=== PATIENT | male | born 1950 | race Caucasian/White ===

== ENCOUNTER → 2018-12-29 10:15 | Outpatient (CLI) | payer MEDICARE, BC, SELFPAY ==
[2018-12-29 13:10] LABS: Adenovirus F 40/41 Not Detected (Not Detect); Astrovirus Not Detected (Not Detect); Campylobacter Not Detected (Not Detect); Clostridium difficile toxin AB Not Detected (Not Detect); Cryptosporidium Not Detected (Not Detect); Cyclospora cayetanensis Not Detected (Not Detect); Entamoeba histolytica Not Detected (Not Detect); Enteroaggregative E.coli Not Detected (Not Detect); Enteropathogenic E.coli Not Detected (Not Detect); Enterotoxigenic E.coli It/st Not Detected (Not Detect); Giardia lamblia Not Detected (Not Detect); Norovirus GI/GII Not Detected (Not Detect); Plesiomonsa shigelloides Not Detected (Not Detect); Rotavirus A Not Detected (Not Detect); Salmonella Not Detected (Not Detect); Shiga-like toxin-prod E.coli Not Detected (Not Detect); Shigella/Enteroinvasive E.coli Not Detected (Not Detect); Vibrio Not Detected (Not Detect); Vibrio cholerae Not Detected (Not Detect); Yersinia enterocolitica Not Detected (Not Detect)
== END ==
PROVIDERS: PCP Family Medicine; Visit Provider Physician Assistant
DX: R19.7 Diarrhea, unspecified (principal)
CPT/HCPCS: 87507

== ENCOUNTER 2020-04-10 08:38 | Inpatient (IN) | payer MEDICARE, BC, SELFPAY ==
[2020-04-10] VITALS (13 sets, daily range): BP systolic 131–172; BP diastolic 68–106; PULSE 67–94; RESP 14–37; TEMP 36.6–37.1; O2SAT 96–99; BMI 25.5
--- NOTE | 2020-04-10 08:55 | ED_ITS ---
HPI - Abdominal Pain General Chief Complaint: Abdominal Pain Stated Complaint: left side abdominal pain Time Seen by Provider: 04/10/20 08:53 Source: patient Mode of arrival: Ambulatory Limitations: no limitations History of Present Illness HPI narrative: This is a 69-year-old male who comes with complaint of left-sided abdominal pain that began about 730 last night. Patient states that pain sort of radiates to his lower chest on the left. As well as down on the lower left abdomen. Patient states it does not radiate to his back he denies any flank pain. Patient denies any testicular pain. He states pain started gradually and has increased intensity, has been constant without any exacerbating or alleviat ing factors. He started feeling nauseated at about noon yesterday and continues to feel so. He has not had any emesis. He has felt warm but has not had any documented fevers. He denies chills. He had a normal bowel movement today but has a sensation that he is about to have diarrhea. Patient denies any melena or bright red blood. He did take some Pepto yesterday. He denies any syncope but has felt lightheaded. No shortness of breath but does have increased pain in his abdomen when he takes a deep breath. He denies any swelling in his extremities. Patient does state he has had some issues with chronic diarrhea the past. He did have a colonoscopy 3 years ago which he states was negative and he was told to return in 10 years. Denies any medical issues otherwise, he does not take any medications regularly. He denies any prior surgeries. No allergies to medications. Quit smoking tobacco 25 years ago, quit drinking alcohol in February 2019, no recreational drugs. He does not currently have a primary care physician. Related Data Allergies Allergy/AdvReac Type Severity Reaction Status Date / Time No Known Allergies Allergy Uncoded 04/10/20 08:49 Review of Systems Review of Systems ROS Unobtainable: All systems reviewed & are unremarkable except as noted in HPI and below Patient History Medical History (Updated 04/10/20 @ 10:54 by Padma Saleh DO) Normal colonoscopy Social History Smoking Status: Former smoker Smoking Status: Former smoker alcohol intake frequency: 0-2 drinks per day Substance Use Type: does not use Exam Narrative Exam Narrative: GENERAL: Alert and oriented x three, well-nourished, well- appearing male in mild distress. HEENT: Head normocephalic, atraumatic, EOMI, pupils reactive, face symmetric, moist mucous membranes NECK: Supple, full range of motion CARDIOVASCULAR: Regular rate and rhythm without murmurs, rubs or gallops. RESPIRATORY: Breath sounds equal bilaterally, no wheezes rales or rhonchi. ABDOMEN: Soft, patient has mild left lower quadrant tenderness and moderate left upper quadrant tenderness. Normoactive bowel sounds all 4 quadrants. No guarding or rebound, rigidity, no mass, no bruit or pulsatile mass. : No CVA tenderness EXTREMITIES: Normal range of motion, no clubbing or edema. Neurovascularly intact NEUROLOGICAL: Cranial nerves II through XII grossly intact. Moving all extremities SKIN: Warm, dry, no petechiae, no rashes or lesions, no vesicles or other skin changes. Initial Vital Signs Initial Vital Signs: Vital Signs Temperature 98.8 F 04/10/20 08:45 Pulse Rate 94 H 04/10/20 08:45 Respiratory Rate 18 04/10/20 08:45 Blood Pressure 172/106 H 04/10/20 08:45 Pulse Oximetry 98 04/10/20 08:45 Course Orders Ordered: ED Orders 04/10/20 09:00 Complete Blood Count AUTO DIFF Stat Comprehensive Metabolic Panel Stat Lipase Stat Partial Thromboplastin Time Stat Procalcitonin Stat Prothrombin Time INR Stat Troponin & CK Cardiac Panel Stat 04/10/20 09:04 EKG-12 Lead Stat 04/10/20 09:15 COVID19 Stat 04/10/20 10:21 CT abdomen pelvis w con Stat 04/10/20 10:56 US abdomen complete Stat Discontinued Medications Sodium Chloride (Normal Saline 0.9%) 1,000 mls @ 1,000 mls/hr IV BOLUS ONE Stop: 04/10/20 10:05 Last Infusion: 04/10/20 11:21 Dose: 0 mls/hr Documented by: Admin: 04/10/20 09:40 Dose: 1,000 mls/hr Documented by: RADHA Ketorolac Tromethamine (Ketorolac 60 Mg/2 Ml Vial) 15 mg IV NOW ONE Stop: 04/10/20 09:07 Last Admin: 04/10/20 09:39 Dose: 15 mg Documented by: SMICHEAU Ondansetron HCl (Ondansetron 4 Mg/2 Ml Inj) 4 mg IV NOW ONE Stop: 04/10/20 09:07 Last Admin: 04/10/20 09:40 Dose: 4 mg Documented by: RADHA Reevaluation(s) Reevaluation #1: Patient updated on findings. He had improvement with Toradol he defers any additional pain medications. Time: 10:36 Consultations Consultation #1: Dr. Fuentes accepts for admission. He does request an abdominal US but patient can go to floor prior to results/obtained. Time: 10:57 Vital Signs Vital signs: Vital Signs - 8 hr 04/10/20 08:45 04/10/20 08:46 04/10/20 09:00 Temperature 98.8 F Pulse Rate 94 H 86 81 Respiratory Rate 18 21 36 H Blood Pressure 172/106 H 172/106 H Pulse Oximetry 98 99 98 04/10/20 09:30 04/10/20 09:48 04/10/20 10:00 Temperature Pulse Rate 69 70 67 Respiratory Rate 18 37 H 18 Blood Pressure 158/98 H 163/81 H Pulse Oximetry 97 97 97 04/10/20 10:20 04/10/20 10:30 04/10/20 11:00 Temperature Pulse Rate 78 73 73 Respiratory Rate 14 19 22 Blood Pressure 161/84 H 155/87 H 152/86 H Pulse Oximetry 99 98 98 MDM - Abdominal Pain Lab Data Attestation: I reviewed the patient's lab results. Result diagrams: 04/10/20 09:00 04/10/20 09:00 Labs: Lab Results 04/10/20 04/10/20 04/10/20 Range/Units 09:00 09:00 09:00 WBC 14.1 H (4.5-11.0) X10^3/uL RBC 5.25 (4.5-5.9) X10^6/uL Hgb 16.1 (13.5-17.5) g/dL Hct 46.6 (41-53) % MCV 88.7 (80-100) fL MCH 30.7 (26-34) PG MCHC 34.7 (30-36) % RDW 13.4 (11.6-14.8) % Plt Count 268 (150-400) X10^3/uL Neut % (Auto) 89.7 H (50-75) % Lymph % (Auto) 6.5 L (25-40) % [place] % (Auto) 3.6 (3-14) % Eos % (Auto) 0.0 L (2-4) % Baso % (Auto) 0.2 (0-2) % Neut # (Auto) 63267 H (7824-2635) /uL Lymph # (Auto) 900 L (6563-5492) /uL [place] # (Auto) 500 (0-900) /uL Eos # (Auto) 0 (0-450) /uL Baso # (Auto) 0 (0-100) /uL PT 11.9 (10.1-12.7) SECONDS INR 1.0 (0.9-1.3) APTT 28 (26.4-36.2) SECONDS Sodium 138 (137-145) mmol/L Potassium 3.6 (3.4-5.1) mmol/L Chloride 104 (98-107) mmol/L Carbon Dioxide 30 (22-32) mmol/L BUN 11 (9-20) mg/dL Creatinine 0.62 L (0.66-1.25) mg/dL Estimated GFR > 60.0 (>60) mL/min BUN/Creatinine Ratio 17.7 (6-22) Glucose 144 H (80-110) mg/dL Calcium 9.9 (8.4-10.2) mg/dL Total Bilirubin 1.0 (0.2-1.3) mg/dL AST 29 (17-59) IU/L ALT 27 (<50) IU/L Alkaline Phosphatase 80 (38-126) U/L Total Creatine Kinase (55-170) U/L CK-MB (CK-2) CK-MB (CK-2) Rel Index Troponin I (0.01-0.034) ng/mL Total Protein 7.5 (6.3-8.2) g/dL Albumin 4.5 (3.5-5.0) g/dL Globulin 3.0 (1.7-4.1) g/dL Albumin/Globulin Ratio 1.5 (1.0-2.8) Lipase 9560 H (23-300) U/L Procalcitonin (<0.5) ng/mL SARS-CoV-2 (PCR) (Negative) 04/10/20 04/10/20 04/10/20 Range/Units 09:00 09:00 09:15 WBC (4.5-11.0) X10^3/uL RBC (4.5-5.9) X10^6/uL Hgb (13.5-17.5) g/dL Hct (41-53) % MCV (80-100) fL MCH (26-34) PG MCHC (30-36) % RDW (11.6-14.8) % Plt Count (150-400) X10^3/uL Neut % (Auto) (50-75) % Lymph % (Auto) (25-40) % [place] % (Auto) (3-14) % Eos % (Auto) (2-4) % Baso % (Auto) (0-2) % Neut # (Auto) (8250-0590) /uL Lymph # (Auto) (0178-9987) /uL [place] # (Auto) (0-900) /uL Eos # (Auto) (0-450) /uL Baso # (Auto) (0-100) /uL PT (10.1-12.7) SECONDS INR (0.9-1.3) APTT (26.4-36.2) SECONDS Sodium (137-145) mmol/L Potassium (3.4-5.1) mmol/L Chloride (98-107) mmol/L Carbon Dioxide (22-32) mmol/L BUN (9-20) mg/dL Creatinine (0.66-1.25) mg/dL Estimated GFR (>60) mL/min BUN/Creatinine Ratio (6-22) Glucose (80-110) mg/dL Calcium (8.4-10.2) mg/dL Total Bilirubin (0.2-1.3) mg/dL AST (17-59) IU/L ALT (<50) IU/L Alkaline Phosphatase (38-126) U/L Total Creatine Kinase 55 (55-170) U/L CK-MB (CK-2) TNP CK-MB (CK-2) Rel Index TNP Troponin I < 0.012 (0.01-0.034) ng/mL Total Protein (6.3-8.2) g/dL Albumin (3.5-5.0) g/dL Globulin (1.7-4.1) g/dL Albumin/Globulin Ratio (1.0-2.8) Lipase (23-300) U/L Procalcitonin < 0.05 (<0.5) ng/mL SARS-CoV-2 (PCR) Negative (Negative) Imaging Data CT scan - abdomen/pelvis: Radiologist's Impression: [address] [id number] Scan ReportSigned Patient: Giovanni Roche EMR#: [id number]: 1Acct:[id number]/Sex: 69 / MDate of Service: 04/10/20Loc: EDAccession Number: [id number] Procedure: CT abdomen pelvis w con Ordering Provider: Padma Saleh D.O. PROCEDURE: CT ABDOMEN PELVIS W CON INDICATIONS: Left sided abdominal pain TECHNIQUE: After the administration of intravenous contrast, 5 mm thick sections acquired from the diaphragm to the symphysis. 5 mm coronal and sagittal reformats were acquired. For radiation dose reduction, the following was used: automated exposure control, adjustment of mA and/or kV according to patient size. COMPARISON: None. FINDINGS: Image quality: Excellent. ABDOMEN: Lung bases: Lung bases are clear. Heart size is normal. Solid organs: Liver is normal in size and enhancement. Gallbladder wall is not thickened. Biliary system is non dilated. Moderate inflammatory changes are seen surrounding the pancreas. No loculated fluid collections are seen to suggest pseudocyst. The pancreas itself enhances normally, without necrotic regions. No lester pancreatic masses can be seen. However, there is a 1.4 cm apparent cyst involving the inferior body of the pancreas, as on series 4, image 19. No dilatation of the pancreatic duct is seen. Spleen is normal in size and enhancement. Incidental note is made of an accessory splenule along the hilum of the primary spleen. No adrenal nodules. Kidneys demonstrate normal size and enhancement, without hydronephrosis. Peritoneum and bowel: Bowel loops demonstrate normal wall thickness and caliber. No free fluid or air. Hyperdense material can be seen within the stomach and within the bowel. Please correlate with ingestions, such as Pepto-Bismol. Nodes and vessels: No retroperitoneal or mesenteric adenopathy by size criteria . Aorta and inferior vena cava are normal in size. Atherosclerotic calcification is noted. Miscellaneous: No ventral hernias. PELVIS: Genitourinary: Bladder wall thickness is normal. Miscellaneous: No inguinal hernias or adenopathy. The prostate is prominent, measuring 5.2 cm transversely. Bones: No suspicious bony lesions. No vertebral body compression fractures. Degenerative changes are seen, which are most prominent involving the L4-L5 level. Milder degenerative changes are seen elsewhere. IMPRESSION: Suspicion for pancreatitis, with moderate surrounding change seen surrounding the pancreas. Please correlate with patient presentation, physical examination findings, and laboratory values. An apparent 1.4 cm pancreatic cyst can be seen. Following the patient's current clinical episode, please consider a dedicated pancreas protocol MRI (without and with contrast) for further evaluation (assuming that there is no contraindication). Incidental note is made of: Prominent prostate Focal L4-L5 degenerative change Dictated by: Ritesh Pacheco M.D. on 04/10/2020 at 9:33 Approved by: Ritesh Pacheco M.D. on 04/10/2020 at 9:37 ECG Data Attestation: I personally reviewed and interpreted this ECG as follows: Prior ECG tracings: not available for review Interpretation: Normal sinus rhythm, rate of 76, MT 178, QRS of 98 QTC of 438. No ST elevation appreciated. Nonspecific change. No priors available. Discharge Plan Departure Patient Disposition: Admitted as Observation Clinical Impression: Pancreatitis, Cyst of pancreas Admit Date/Time: 04/10/20 11:10 Admit Provider: Lloyd Fuentes
[2020-04-10 09:20] LABS: Add Manual Diff / Slide Review NO; Basophils Absolute Auto 0 /uL (0-100); Basophils Percent Auto 0.2 % (0-2); Eosinophils Absolute Auto 0 /uL (0-450); Hematocrit 46.6 % (41-53); Hemoglobin 16.1 g/dL (13.5-17.5); Lymphocytes Absolute Auto 900 /uL (1100-4500); Lymphocytes Percent Auto 6.5 % (25-40); Mean Corpuscular HGB Conc 34.7 % (30-36); Mean Corpuscular Hemoglobin 30.7 PG (26-34); Mean Corpuscular Volume 88.7 fL (80-100); Monocytes Absolute Auto 500 /uL (0-900); Monocytes Percent Auto 3.6 % (3-14); Neutrophils Absolute Auto 12600 /uL (1500-7000); Neutrophils Percent Auto 89.7 % (50-75); Platelet Count 268 X10^3/uL (150-400); Red Blood Cell Count 5.25 X10^6/uL (4.5-5.9); Red Cell Distribution Width 13.4 % (11.6-14.8); White Blood Cell Count 14.1 X10^3/uL (4.5-11.0)
[2020-04-10 09:21] LABS: Prothrombin Time 11.9 SECONDS (10.1-12.7)
[2020-04-10 09:24] LABS: PTT Partial Thromboplastin Tim 28 SECONDS (26.4-36.2)
[2020-04-10 09:29] LABS: Alanine Aminotransferase 27 IU/L (<50); Albumin 4.5 g/dL (3.5-5.0); Albumin Globulin Ratio 1.5 (1.0-2.8); Alkaline Phosphatase 80 U/L (38-126); Aspartate Aminotransferase 29 IU/L (17-59); BUN Creatinine Ratio 17.7 (6-22); Blood Urea Nitrogen 11 mg/dL (9-20); Calcium 9.9 mg/dL (8.4-10.2); Carbon Dioxide 30 mmol/L (22-32); Chloride 104 mmol/L (98-107); Creatine Kinase 55 U/L (55-170); Estimated Glomerular Filt Rate > 60.0 mL/min (>60); Glucose 144 mg/dL (80-110); Potassium 3.6 mmol/L (3.4-5.1); Sodium 138 mmol/L (137-145); Total Protein 7.5 g/dL (6.3-8.2)
[2020-04-10] MEDS: KETOROLAC 60 MG/2 ML VIAL 15 MG IV (09:39)
[2020-04-10 09:40] LABS: Troponin I < 0.012 ng/mL (0.01-0.034)
[2020-04-10] MEDS: SODIUM CHLORIDE 0.9% 1,000 ML 1000 ML IV (09:40)
[2020-04-10] MEDS: ONDANSETRON 4 MG/2 ML INJ IV ×2 (09:40→13:10)
[2020-04-10 09:44] LABS: Procalcitonin < 0.05 ng/mL (<0.5)
[2020-04-10 09:54] LABS: COVID19 -Nasal RAPID Negative (Negative)
[2020-04-10 10:06] LABS: HEMOLYSIS 28 (0-50)
[2020-04-10 10:07] LABS: Lipase 9560 U/L (23-300)
--- NOTE | 2020-04-10 10:21 | DI.CT.S_ITS ---
PROCEDURE: CT ABDOMEN PELVIS W CON INDICATIONS: Left sided abdominal pain TECHNIQUE: After the administration of intravenous contrast, 5 mm thick sections acquired from the diaphragm to the symphysis. 5 mm coronal and sagittal reformats were acquired. For radiation dose reduction, the following was used: automated exposure control, adjustment of mA and/or kV according to patient size. COMPARISON: None. FINDINGS: Image quality: Excellent. ABDOMEN: Lung bases: Lung bases are clear. Heart size is normal. Solid organs: Liver is normal in size and enhancement. Gallbladder wall is not thickened. Biliary system is non dilated. Moderate inflammatory changes are seen surrounding the pancreas. No loculated fluid collections are seen to suggest pseudocyst. The pancreas itself enhances normally, without necrotic regions. No lester pancreatic masses can be seen. However, there is a 1.4 cm apparent cyst involving the inferior body of the pancreas, as on series 4, image 19. No dilatation of the pancreatic duct is seen. Spleen is normal in size and enhancement. Incidental note is made of an accessory splenule along the hilum of the primary spleen. No adrenal nodules. Kidneys demonstrate normal size and enhancement, without hydronephrosis. Peritoneum and bowel: Bowel loops demonstrate normal wall thickness and caliber. No free fluid or air. Hyperdense material can be seen within the stomach and within the bowel. Please correlate with ingestions, such as Pepto-Bismol. Nodes and vessels: No retroperitoneal or mesenteric adenopathy by size criteria. Aorta and inferior vena cava are normal in size. Atherosclerotic calcification is noted. Miscellaneous: No ventral hernias. PELVIS: Genitourinary: Bladder wall thickness is normal. Miscellaneous: No inguinal hernias or adenopathy. The prostate is prominent, measuring 5.2 cm transversely. Bones: No suspicious bony lesions. No vertebral body compression fractures. Degenerative changes are seen, which are most prominent involving the L4-L5 level. Milder degenerative changes are seen elsewhere. IMPRESSION: Suspicion for pancreatitis, with moderate surrounding change seen surrounding the pancreas. Please correlate with patient presentation, physical examination findings, and laboratory values. An apparent 1.4 cm pancreatic cyst can be seen. Following the patient's current clinical episode, please consider a dedicated pancreas protocol MRI (without and with contrast) for further evaluation (assuming that there is no contraindication). Incidental note is made of: Prominent prostate Focal L4-L5 degenerative change Dictated by: Ritesh Pacheco M.D. on 04/10/2020 at 9:33 Approved by: Ritesh Pacheco M.D. on 04/10/2020 at 9:37
--- NOTE | 2020-04-10 10:56 | DI.US.S_ITS ---
PROCEDURE: US ABDOMEN COMPLETE INDICATIONS: PANCREATITIS AND PANCREATIC CYST - ROOM 219 TECHNIQUE: Real-time scanning was performed of the abdominal and retroperitoneal organs, with image documentation. COMPARISON: [facility], CT, CT ABDOMEN PELVIS W CON, 04/10/2020, 10:12. FINDINGS: Liver: Liver is normal in size and homogeneous in echotexture. Gallbladder: Nondilated. No stones or sludge. Normal gallbladder wall thickness. No pericholecystic fluid. Negative sonographic Arzola's sign. Biliary ducts: Intrahepatic bile ducts are non-dilated. Extrahepatic bile duct caliber measures 3 mm. Normal is 6-7 mm or less in diameter, or 10 mm or less post-cholecystectomy. Pancreas: Not well seen. Spleen: Spleen is normal in size and homogeneous in echotexture. Small splenule noted. Kidneys: Kidneys are normal in size and echotexture. Right kidney measures 9.8 cm long; left kidney measures 10.2 cm long. No hydronephrosis or nephrolithiasis. No solid masses. Aorta: Visualized aorta is normal in caliber at less than 3 cm. Iliacs: Proximal common iliac arteries are normal in caliber at less than 2.5 cm. IVC: Intrahepatic inferior vena cava is patent. Miscellaneous: No free abdominal fluid. IMPRESSION: 1. Pancreas is not well seen due to overlying bowel gas. -Consider further evaluation with CT pancreas or MRI pancreas with IV contrast in this patient with suspected pancreatitis. -Evaluation of the small suspected cyst in the pancreas would be more optimally performed in a few weeks. 2. No acute cholecystitis. No gallstones. 3. No biliary ductal dilatation seen. Dictated by: Efren Purcell M.D. on 04/10/2020 at 12:31 Approved by: Efren Purcell M.D. on 04/10/2020 at 12:37
--- NOTE | 2020-04-10 14:06 | P.HP_ITS ---
History of Present Illness History of Present Illness Date Patient Seen: 04/10/20 Time Patient Seen: 13:45 Date of Onset of Symptoms: 04/09/20 Chief complaint: left side abdominal pain Narrative: Patient is a 69-year-old generally healthy male presented to the emergency department due to acute abdominal pain since last night. Around 7:30 p.m. he developed nausea, dry heaves and left upper abdominal pain. He states the pain radiated up into his chest and also further down his abdomen. He had dry heaves but did not throw up. He denies fevers or chills. He quit drinking a year ago but previously alcohol consumption consisted of 1 beer a day. He is not a smoker. He is not on any medications. On ER evaluation, he was hypertensive with BP 172/106 which is trending down. Other vitals were normal. His WBC was 14.1 with left shift. His chemistries were normal including LFTs except for glucose 144. His lipase was elevated at 9 560. COVID test is negative. A CT scan showed moderate inflammatory changes surrounding the pancreas and a 1.4 cm pancreatic cyst. Ultrasound showed no gallstones or bile duct dilatation. Patient History Medical History (Updated 04/10/20 @ 10:54 by Padma Saleh DO) Normal colonoscopy Family & Social History Social History: household members none Prior Living Arrangements House Safety & Behavioral: Feels Safe in Current Yes Environment Been Physically Hurt or No Threatened By a Person Suicidal Ideation Description None Suicide Plan Description No Plan Tobacco & Substance use: Smoking Status Former smoker alcohol intake frequency 0-2 drinks per day Substance Use Type does not use Meds Home Medications and Allergies Allergies Allergy/AdvReac Type Severity Reaction Status Date / Time No Known Drug Allergies Allergy Verified 04/10/20 12:08 Review of Systems Review of Systems ROS: Yes All systems reviewed with the patient and are negative except as otherwise documented Exam Vital Signs (past 8 hours): - 04/10/20 08:45 04/10/20 08:46 04/10/20 09:00 Temperature 98.8 F Pulse Rate 94 H 86 81 Respiratory Rate 18 21 36 H Blood Pressure 172/106 H 172/106 H Pulse Oximetry 98 99 98 04/10/20 09:30 04/10/20 09:48 04/10/20 10:00 Temperature Pulse Rate 69 70 67 Respiratory Rate 18 37 H 18 Blood Pressure 158/98 H 163/81 H Pulse Oximetry 97 97 97 04/10/20 10:20 04/10/20 10:30 04/10/20 11:00 Temperature Pulse Rate 78 73 73 Respiratory Rate 14 19 22 Blood Pressure 161/84 H 155/87 H 152/86 H Pulse Oximetry 99 98 98 Oxygen Delivery Method Room Air Narrative Exam Narrative: General: Alert very pleasant well-developed well-nourished male in no acute distress HEENT: Anicteric pupils equal oropharynx unremarkable Neck: Supple without lymphadenopathy Lungs: Clear to auscultation Heart: Regular rhythm without murmur Abdomen: Nondistended, soft, tender in epigastric and left upper quadrant, no HSM Extremities: Warm, dry without edema Neurological: Oriented x3, affect normal, speech normal, nonfocal Objective Labs Result Diagrams: 04/10/20 09:00 04/10/20 09:00 Labs: Laboratory Results - last 24 hr 04/10/20 04/10/20 04/10/20 09:00 09:00 09:00 WBC 14.1 H RBC 5.25 Hgb 16.1 Hct 46.6 MCV 88.7 MCH 30.7 MCHC 34.7 RDW 13.4 Plt Count 268 Neut % (Auto) 89.7 H Lymph % (Auto) 6.5 L [place] % (Auto) 3.6 Eos % (Auto) 0.0 L Baso % (Auto) 0.2 Neut # (Auto) 29801 H Lymph # (Auto) 900 L [place] # (Auto) 500 Eos # (Auto) 0 Baso # (Auto) 0 PT 11.9 INR 1.0 APTT 28 Sodium 138 Potassium 3.6 Chloride 104 Carbon Dioxide 30 BUN 11 Creatinine 0.62 L Estimated GFR > 60.0 BUN/Creatinine Ratio 17.7 Glucose 144 H Calcium 9.9 Total Bilirubin 1.0 AST 29 ALT 27 Alkaline Phosphatase 80 Total Creatine Kinase CK-MB (CK-2) CK-MB (CK-2) Rel Index Troponin I Total Protein 7.5 Albumin 4.5 Globulin 3.0 Albumin/Globulin Ratio 1.5 Lipase 9560 H Procalcitonin SARS-CoV-2 (PCR) 04/10/20 04/10/20 04/10/20 09:00 09:00 09:15 WBC RBC Hgb Hct MCV MCH MCHC RDW Plt Count Neut % (Auto) Lymph % (Auto) [place] % (Auto) Eos % (Auto) Baso % (Auto) Neut # (Auto) Lymph # (Auto) [place] # (Auto) Eos # (Auto) Baso # (Auto) PT INR APTT Sodium Potassium Chloride Carbon Dioxide BUN Creatinine Estimated GFR BUN/Creatinine Ratio Glucose Calcium Total Bilirubin AST ALT Alkaline Phosphatase Total Creatine Kinase 55 CK-MB (CK-2) TNP CK-MB (CK-2) Rel Index TNP Troponin I < 0.012 Total Protein Albumin Globulin Albumin/Globulin Ratio Lipase Procalcitonin < 0.05 SARS-CoV-2 (PCR) Negative Assessment & Plan Assessment & Plan narrative: This is a 69-year-old male admitted with abdominal pain x1 day. 1. Acute pancreatitis -etiology undetermined as patient is not a drinker and has no gallstones or CBD dilatation on imaging, it is possible he passed a small stone, he is not on any meds -IV hydration, Zofran/Reglan as needed, morphine/oxycodone as needed -clear liquid diet -CBC, BMP in a.m. 2. Pancreatic cyst -he has a small pancreatic cyst on CT -per Radiology, recommend repeat imaging as outpatient with dedicated abdominal MRI DVT prophylaxis: Enoxaparin Quality VTE Deep Vein Thrombosis/Pulmonary Embolism Present on Admission: No
[2020-04-10] MEDS: SODIUM CHLORIDE 0.9% 1,000 ML 150 ML IV ×2 (14:24→21:45)
[2020-04-10] MEDS: METOCLOPRAMIDE 10 MG/2 ML INJ IV (14:36)
--- NOTE | 2020-04-10 14:57 | PC.ADMIT ---
[id number] Admission Note: Safe hand off from Jeffrey DUMONT, ED. Patient was brought to the floor via wheelchair. Patients was able to transfer to bed w/ no assistance. Lung sounds are clear, patient is hypertensive 154/87. Patient has some complaints of nausea and Left Lower Quadrant pain 4/10. Patient was given IV zofran, which did not help his nausea. Patient started on fluids NS@150ml/hr. Dr. Fuentes ordered Reglan for patient which was given at 1440. Patient is now on clear liquid diet instead of NPO. Ice water and jello given. Will see if patient tolerates PO intake. Patient states that he orders all of his food on [employer] and does not buy any fresh food from the store because of Covid. Patient educated about the use of store crop picker ordering online and [employer] food delivery services. Patient educated about the use of call light, it is within reach, and bed is low and locked. The patient,Giovanni Roche,69 y/o, was given written information regarding hospital policies, unit procedures and contact persons. Patient's smoking status: Former smoker. Vital Signs - 8 hr 04/10/20 08:45 04/10/20 08:46 04/10/20 09:00 Temperature 98.8 F Pulse Rate 94 H 86 81 Respiratory Rate 18 21 36 H Blood Pressure 172/106 H 172/106 H Pulse Oximetry 98 99 98 04/10/20 09:30 04/10/20 09:48 04/10/20 10:00 Temperature Pulse Rate 69 70 67 Respiratory Rate 18 37 H 18 Blood Pressure 158/98 H 163/81 H Pulse Oximetry 97 97 97 04/10/20 10:20 04/10/20 10:30 04/10/20 11:00 Temperature Pulse Rate 78 73 73 Respiratory Rate 14 19 22 Blood Pressure 161/84 H 155/87 H 152/86 H Pulse Oximetry 99 98 98 04/10/20 14:03 Temperature 97.9 F Pulse Rate 72 Respiratory Rate 18 Blood Pressure 154/87 H Pulse Oximetry 96
[2020-04-10 17:29] LABS: Hemoglobin A1C% w Est Avg Glu 5.6 % (4.0-6.0)
[2020-04-10] MEDS: OXYCODONE IR 5 MG TABLET PO (21:45)
[2020-04-11] VITALS (10 sets, daily range): BP systolic 125–142; BP diastolic 75–84; PULSE 77–83; RESP 15–18; TEMP 36.8–37.5; O2SAT 94–98
[2020-04-11] MEDS: SODIUM CHLORIDE 0.9% 1,000 ML 150 ML IV ×3 (04:09→17:40)
[2020-04-11] MEDS: OXYCODONE IR 5 MG TABLET PO ×3 (04:13→20:16)
[2020-04-11 05:29] LABS: Add Manual Diff / Slide Review NO; Basophils Absolute Auto 0 /uL (0-100); Basophils Percent Auto 0.2 % (0-2); Eosinophils Absolute Auto 0 /uL (0-450); Eosinophils Percent Auto 0.1 % (2-4); Hematocrit 39.3 % (41-53); Hemoglobin 13.4 g/dL (13.5-17.5); Lymphocytes Absolute Auto 1100 /uL (1100-4500); Lymphocytes Percent Auto 7.3 % (25-40); Mean Corpuscular Hemoglobin 30.3 PG (26-34); Monocytes Absolute Auto 1100 /uL (0-900); Monocytes Percent Auto 6.9 % (3-14); Neutrophils Absolute Auto 13200 /uL (1500-7000); Neutrophils Percent Auto 85.5 % (50-75); Platelet Count 200 X10^3/uL (150-400); Red Blood Cell Count 4.42 X10^6/uL (4.5-5.9); Red Cell Distribution Width 13.6 % (11.6-14.8); White Blood Cell Count 15.4 X10^3/uL (4.5-11.0)
--- NOTE | 2020-04-11 05:30 | PC.NURSE ---
Pt stable through shift, no complaints of nausea. Pain controlled with current medication regime, pt able to sleep through majority of the night. VSS, in no cardiovascular or respiratory distress, AOx4. Pt adhering to clear liquids, oral intake decreased d/t sleeping.
[2020-04-11 05:41] LABS: BUN Creatinine Ratio 12.7 (6-22); Blood Urea Nitrogen 8 mg/dL (9-20); Calcium 8.4 mg/dL (8.4-10.2); Carbon Dioxide 29 mmol/L (22-32); Chloride 107 mmol/L (98-107); Estimated Glomerular Filt Rate > 60.0 mL/min (>60); Glucose 117 mg/dL (80-110); HEMOLYSIS < 15 (0-50); Sodium 135 mmol/L (137-145)
[2020-04-11] MEDS: INFLUENZA HD VACCINE 0.7 ML SYRINGE IM (09:04)
[2020-04-11] MEDS: ENOXAPARIN 40 MG/0.4 ML SYRINGE SUBCUT (09:05)
--- NOTE | 2020-04-11 11:29 | CM.DANOTE ---
Addendum entered by Simona Wong R.N. 04/11/20 13:10: Met with patient and gave him phone numbers for [facility]. Asked him about food delivery, since patient indicated, he has not left his house since last May, due to COVID concerns. He has been getting his groceries delivered by [employer]. Patient indicated that supplies are mostly canned items, and powered milk. Asked him if he had considered [employer]. or one of the other options that they can deliver with fresh produce. Stated, he was looking into [employer], and may consider having [employer] deliver, so he can get fresh produce. Original Note: DCP: Case received, EMR reviewed and met with patient. Introduces self and role. Was able to obtain information from patient regarding his baseline activity status prior to hospitalization. DCP assessment completed with information currently available. Patient is a 69 year old male who admitted yesterday morning to the care of the hospitalist team. PCP: None-Will provide provider resources. Payer: confirmed: Medicare/BCBS Out of [facility]. Patient came to the hospital via private vehicle secondary to having left sided abdominal pain. He had also been complaining of left sided chest discomfort as well. Patient was diagnosed with pancreatitis. Patient does have history of alcohol use, was indicated that he had stopped i 2018. Met with patient in his room. He was sitting up in bed, alert and oriented, pleasant. He is independent at baseline. He resides here in [place] alone. He has no immediate family in the area, but has a sister in [place]. He had not left his house in several months, due to concerns about the virus. His groceries are delivered through [employer]. Confirmed that he has no primary MD, and let him know that this case mgr can give number for providers at [facility]. P: DCP to continue to follow for needs. Patient should be able to go home when stable. He may be having an MRI today. Will provide with resources. Simona Wong RN/Director Of Recruiting
--- NOTE | 2020-04-11 13:14 | DI.RAD.S_ITS ---
PROCEDURE: XR ABDOMEN MIN 2V INDICATIONS: r/o ileus. TECHNIQUE: 2 views of the abdomen were acquired. COMPARISON: None. FINDINGS: Surgical changes and devices: None. Bowel: No pneumoperitoneum. The bowel gas pattern is normal. Soft tissues: No masses; visualized solid organ contours appear normal in size. No suspicious abdominal calcifications. Bones: No suspicious bony abnormalities. IMPRESSION: Nonspecific bowel gas pattern. The degree of small bowel prominence at the mid abdomen on the left has diminished. No free air seen. Dictated by: Arnulfo Scott M.D. on 04/11/2020 at 14:12 Approved by: Arnulfo Scott M.D. on 04/11/2020 at 14:12
[2020-04-11] MEDS: MAGNESIUM HYDROXIDE 30 ML UDC PO (15:52)
--- NOTE | 2020-04-11 16:24 | PM.PN.1 ---
Subjective Subjective Date Patient Seen: 04/11/20 Interval history: Patient is 69-year-old male admitted with acute abdominal pain due to pancreatitis. Patient reports some improvement in pain though still 4/10. He also feels his stomach is bloated and hard and he has not passed any gas. He is on clear liquid diet. Last bowel movement was about 24 hours ago. Exam Vital Signs (past 8 hours): - 04/11/20 10:00 04/11/20 12:00 04/11/20 14:00 Temperature 98.4 F Pulse Rate 80 Respiratory Rate 15 Blood Pressure 127/81 Pulse Oximetry 98 95 98 04/11/20 15:40 Temperature 99.5 F Pulse Rate 78 Respiratory Rate 18 Blood Pressure 142/80 H Pulse Oximetry 96 Oxygen Delivery Method Room Air Oxygen Flow Rate 0 Narrative Exam Narrative: General: Alert and cooperative Lungs: Clear to auscultation Heart: Regular rhythm Abdomen: Moderately distended, bowel sounds are present, tender and guarding in left upper quadrant and left mid abdomen Objective Labs Result Diagrams: 04/11/20 05:05 04/11/20 05:05 Labs: Laboratory Results - last 24 hr 04/10/20 04/11/20 04/11/20 17:00 05:05 05:05 WBC 15.4 H RBC 4.42 L Hgb 13.4 L Hct 39.3 L MCV 89.0 MCH 30.3 MCHC 34.0 RDW 13.6 Plt Count 200 Neut % (Auto) 85.5 H Lymph % (Auto) 7.3 L [place] % (Auto) 6.9 Eos % (Auto) 0.1 L Baso % (Auto) 0.2 Neut # (Auto) 81199 H Lymph # (Auto) 1100 [place] # (Auto) 1100 H Eos # (Auto) 0 Baso # (Auto) 0 Sodium 135 L Potassium 4.0 Chloride 107 Carbon Dioxide 29 BUN 8 L Creatinine 0.63 L Estimated GFR > 60.0 BUN/Creatinine Ratio 12.7 Glucose 117 H Hemoglobin A1c 5.6 Calcium 8.4 PFSH Medical History (Updated 04/10/20 @ 10:54 by Padma Saleh DO) Normal colonoscopy Social History household members: none Smoking Status: Former smoker Assessment & Plan Assessment & Plan narrative: 1. Acute pancreatitis -etiology undetermined as patient is not a drinker and has no gallstones or CBD dilatation on imaging, it is possible he passed a small stone, he is not on any home meds -abdomen more distended today, however x-rays did not show any ileus, he has mild leukocytosis -continue supportive therapy with IV hydration, Zofran/Reglan as needed, morphine/oxycodone as needed -clear liquid diet as tolerated only -CBC, BMP in a.m. 2. Pancreatic cyst -he has a small pancreatic cyst on CT -per Radiology, recommend repeat imaging as outpatient with dedicated abdominal MRI DVT prophylaxis: Enoxaparin Quality VTE Deep Vein Thrombosis/Pulmonary Embolism Present on Admission: No
--- NOTE | 2020-04-11 21:54 | PC.NURSE ---
Pt IV infiltrated and D/C at 1900. New IV started in L forearm by TIM Reese. Infusing NS @150 per orders. Pt had complaints of nausea and discomfort during shift, medicated per MAY and pain and nausea were relieved.
[2020-04-12] VITALS (8 sets, daily range): BP systolic 131–150; BP diastolic 74–87; PULSE 69–80; RESP 14–18; TEMP 36.7–37.3; O2SAT 93–98
--- NOTE | 2020-04-12 00:21 | PC.NURSE ---
2320 patient seen and assessed. Is alert and oriented. Breath sounds CTA with RA sat of 94%. HRR. BP 141/84 and has been running 120's-160's this hospitalization. HRR. Denies nausea. BT present but denies passing flatus in several days. Abdomen is slightly distended and firm. Complains of 4/10 dull achy pain in left quads of abdomen but states it is tolerable and declines pain medication. Denies dysuria, frequency or urgency with urination. Is able to turn self in bed. Is provided SBA when out of bed as safety precaution as fall risk score is moderate; bed alarm is activated.
[2020-04-12] MEDS: SODIUM CHLORIDE 0.9% 1,000 ML 150 ML IV ×3 (00:55→21:40)
[2020-04-12 05:53] LABS: Add Manual Diff / Slide Review NO; Basophils Absolute Auto 0 /uL (0-100); Basophils Percent Auto 0.2 % (0-2); Eosinophils Absolute Auto 100 /uL (0-450); Eosinophils Percent Auto 0.9 % (2-4); Hematocrit 38.7 % (41-53); Lymphocytes Absolute Auto 1200 /uL (1100-4500); Lymphocytes Percent Auto 8.6 % (25-40); Mean Corpuscular HGB Conc 33.7 % (30-36); Mean Corpuscular Volume 88.8 fL (80-100); Monocytes Absolute Auto 1100 /uL (0-900); Monocytes Percent Auto 7.6 % (3-14); Neutrophils Absolute Auto 11900 /uL (1500-7000); Neutrophils Percent Auto 82.7 % (50-75); Platelet Count 187 X10^3/uL (150-400); Red Blood Cell Count 4.35 X10^6/uL (4.5-5.9); Red Cell Distribution Width 13.4 % (11.6-14.8); White Blood Cell Count 14.3 X10^3/uL (4.5-11.0)
[2020-04-12 06:02] LABS: BUN Creatinine Ratio 9.4 (6-22); Blood Urea Nitrogen 6 mg/dL (9-20); Calcium 8.4 mg/dL (8.4-10.2); Carbon Dioxide 28 mmol/L (22-32); Chloride 106 mmol/L (98-107); Estimated Glomerular Filt Rate > 60.0 mL/min (>60); Glucose 93 mg/dL (80-110); HEMOLYSIS < 15 (0-50); Sodium 135 mmol/L (137-145)
[2020-04-12] MEDS: ENOXAPARIN 40 MG/0.4 ML SYRINGE SUBCUT (07:40)
[2020-04-12 09:21] LABS: Triglycerides 79 mg/dL (35-150)
--- NOTE | 2020-04-12 13:54 | PM.PN.1 ---
Subjective Subjective Date Patient Seen: 04/12/20 Interval history: Patient is 69-year-old male admitted with acute abdominal pain due to pancreatitis. Patient reports improvement in abdominal distension which he was having yesterday. He still has leukocytosis. He is tolerating clear liquid diet. Exam Vital Signs (past 8 hours): - 04/12/20 07:24 04/12/20 07:30 04/12/20 11:34 Temperature 98.2 F 98.0 F Pulse Rate 76 71 Respiratory Rate 16 14 Blood Pressure 131/77 139/85 Pulse Oximetry 94 98 97 Oxygen Delivery Method Room Air Oxygen Flow Rate 0 Narrative Exam Narrative: General: Alert, NAD Lungs: Clear to auscultation Heart: Regular rhythm Abdomen: Soft, not tender today, no guarding Extremities: No edema Neurological: Normal affect Objective Labs Result Diagrams: 04/12/20 05:15 04/12/20 05:15 Labs: Laboratory Results - last 24 hr 04/12/20 04/12/20 04/12/20 05:15 05:15 08:54 WBC 14.3 H RBC 4.35 L Hgb 13.0 L Hct 38.7 L MCV 88.8 MCH 30.0 MCHC 33.7 RDW 13.4 Plt Count 187 Neut % (Auto) 82.7 H Lymph % (Auto) 8.6 L [place] % (Auto) 7.6 Eos % (Auto) 0.9 L Baso % (Auto) 0.2 Neut # (Auto) 05111 H Lymph # (Auto) 1200 [place] # (Auto) 1100 H Eos # (Auto) 100 Baso # (Auto) 0 Sodium 135 L Potassium 4.0 Chloride 106 Carbon Dioxide 28 BUN 6 L Creatinine 0.64 L Estimated GFR > 60.0 BUN/Creatinine Ratio 9.4 Glucose 93 Calcium 8.4 Triglycerides 79 PFSH Medical History (Updated 04/10/20 @ 10:54 by Padma Saleh DO) Normal colonoscopy Social History household members: none Smoking Status: Former smoker Assessment & Plan Assessment & Plan narrative: 1. Acute pancreatitis -etiology undetermined as patient is not a drinker and has no gallstones or CBD dilatation on imaging, it is possible he passed a small stone, he is not on any home meds -triglyceride 97 -abdominal distension and pain is improving and tolerating clears -continue supportive therapy with IV hydration, Zofran/Reglan as needed, morphine/oxycodone as needed -clear liquid diet, consider advance diet on Thursday -CBC, BMP in a.m. 2. Pancreatic cyst -he has a small pancreatic cyst on CT -per Radiology, recommend repeat imaging as outpatient with dedicated abdominal MRI DVT prophylaxis: Enoxaparin Quality VTE Deep Vein Thrombosis/Pulmonary Embolism Present on Admission: No
--- NOTE | 2020-04-12 15:06 | PC.NURSE ---
GI: Had some sl nausea after clear liquids this am. He didn't want to take anything for it. Has active BT's and has been up in the room with out problems. At times feels hungry, then he isn't hungry. He is sl distended, minimal amts of flatus, no bm since he has been here. Cont w/poc.
--- NOTE | 2020-04-12 21:53 | PC.NURSE ---
Pt is alert and oriented. BP 142/84 but has been baseline for him this hospital stay. O2 95% RA. Has had no complaints of nausea or pain during this shift. Bowels active and states he is passing flatus. Pt uses call light appropriately and rests comfortably.
[2020-04-13] VITALS (10 sets, daily range): BP systolic 136–152; BP diastolic 74–90; PULSE 61–78; RESP 16–18; TEMP 36.5–37.7; O2SAT 95–99
[2020-04-13] MEDS: SODIUM CHLORIDE 0.9% 1,000 ML 150 ML IV (03:58)
[2020-04-13] MEDS: ENOXAPARIN 40 MG/0.4 ML SYRINGE SUBCUT (09:03)
--- NOTE | 2020-04-13 11:21 | PM.PN.1 ---
Subjective Subjective Date Patient Seen: 04/13/20 Interval history: Patient is 69-year-old male admitted with acute abdominal pain due to idiopathic pancreatitis. Patient reports improvement in abdominal distension and is tolerating a clear liquid diet. When pressed he admits to a very mild left upper quadrant pain. Exam Vital Signs (past 8 hours): - 04/13/20 04:30 04/13/20 06:02 04/13/20 08:25 Temperature 98.4 F 98.0 F Pulse Rate 71 61 Respiratory Rate 18 16 Blood Pressure 143/88 H 137/89 Pulse Oximetry 95 95 95 04/13/20 10:00 Temperature Pulse Rate Respiratory Rate Blood Pressure Pulse Oximetry 99 Oxygen Delivery Method Room Air Oxygen Flow Rate 0 Narrative Exam Narrative: He is alert oriented x3. He is tolerating clear liquids. Heart is regular rate and rhythm without murmur. Lungs are clear to auscultation bilaterally. Abdomen is soft, bowel sounds positive, nontender, no organomegaly. Extremities have no ankle edema. Objective Labs Result Diagrams: 04/12/20 05:15 04/12/20 05:15 [facility] Medical History (Updated 04/10/20 @ 10:54 by Padma Saleh DO) Normal colonoscopy Social History household members: none Smoking Status: Former smoker Assessment & Plan Assessment & Plan narrative: 1. Acute pancreatitis -etiology undetermined as patient is not a drinker and has no gallstones or CBD dilatation on imaging, it is possible he passed a small stone, he is not on any home meds -triglyceride 97 -abdominal distension and pain is improving and tolerating clears -continue supportive therapy with IV hydration, Zofran/Reglan as needed, morphine/oxycodone as needed -advance diet today to regular and anticipate discharge home tomorrow -he will need a new primary care physician and has been referred to [facility] 2. Pancreatic cyst -he has a small pancreatic cyst on CT -per Radiology, recommend repeat imaging as outpatient with dedicated abdominal MRI DVT prophylaxis: Enoxaparin Quality VTE Deep Vein Thrombosis/Pulmonary Embolism Present on Admission: No
[2020-04-13] MEDS: ACETAMINOPHEN 325 MG TABLET 650 MG PO (20:50)
--- NOTE | 2020-04-14 00:09 | PC.NURSE ---
patient is alert and oriented. Breath sounds diminished at bases but CTA with RA sat of 96%. HRR; does trend higher, 130-140's, for systolic BP and is currently 142/81. Denies nausea but does report full feeling after eating regular diet. BT present and abdomen is soft; denies any abdominal pain or tenderness. Denies dysuria, frequency or urgency with urination. Is up in room independently and steady on feet. Fall risk score is moderate.
[2020-04-14 00:10] VITALS: BP 142/81; PULSE 69; RESP 18; TEMP 36.6; O2SAT 96
[2020-04-14 04:32] VITALS: BP 140/81; PULSE 65; RESP 18; TEMP 36.6; O2SAT 94
[2020-04-14 07:24] VITALS: BP 127/92; PULSE 75; RESP 14; TEMP 36.8; O2SAT 97
[2020-04-14] MEDS: SODIUM CHLORIDE 0.9% FLUSH 10 ML IV (08:13)
[2020-04-14] MEDS: ENOXAPARIN 40 MG/0.4 ML SYRINGE SUBCUT (08:13)
[2020-04-14 09:00] VITALS: O2SAT 97
--- NOTE | 2020-04-14 09:29 | PM.DS.1 ---
History of Present Illness History of Present Illness Date Patient Seen: 04/14/20 Time Patient Seen: 09:29 Chief complaint: left side abdominal pain Narrative: Patient is a 69-year-old generally healthy male presented to the emergency department due to acute abdominal pain since last night. Around 7:30 p.m. he developed nausea, dry heaves and left upper abdominal pain. He states the pain radiated up into his chest and also further down his abdomen. He had dry heaves but did not throw up. He denies fevers or chills. He quit drinking a year ago but previously alcohol consumption consisted of 1 beer a day. He is not a smoker. He is not on any medications. On ER evaluation, he was hypertensive with BP 172/106 which is trending down. Other vitals were normal. His WBC was 14.1 with left shift. His chemistries were normal including LFTs except for glucose 144. His lipase was elevated at 9560. COVID test is negative. A CT scan showed moderate inflammatory changes surrounding the pancreas and a 1.4 cm pancreatic cyst. Ultrasound showed no gallstones or bile duct dilatation. Discharge Providers Provider Date of admission: 04/10/20 11:10 Discharge Date: 04/14/20 Discharge provider: Tom Sawyer MD Summary Hospital Course Discharge Diagnosis: 1. Acute pancreatitis 2. Pancreatic cyst Hospital Course: 1. Acute pancreatitis -etiology undetermined as patient is not a drinker and has no gallstones or CBD dilatation on imaging, it is possible he passed a small stone, he is not on any home meds -triglyceride 97 -abdominal distension and pain Resolved and tolerating normal diet -considered repeating lipase and white blood count but with complete resolution of symptoms they are unlikely to still be elevated/helpful -he will need a new primary care physician and has been referred to [facility] -I discussed with him that would be prudent to do an MRCP, particularly if symptoms recur. 2. Pancreatic cyst -he has a small pancreatic cyst on CT -per Radiology, recommend repeat imaging as outpatient with dedicated abdominal MRI Status at Discharge Cognitive/behavioral status at discharge: oriented and at baseline, oriented Functional status at discharge: independent ambulation Overall status at discharge: patient is back to baseline Time Spent with Patient Time spent: Less than 30 minutes Exam Vital Signs (past 8 hours): - 04/14/20 04:32 04/14/20 07:24 04/14/20 09:00 Temperature 97.8 F 98.3 F Pulse Rate 65 75 Respiratory Rate 18 14 Blood Pressure 140/81 127/92 H Pulse Oximetry 94 97 97 Oxygen Delivery Method Room Air Oxygen Flow Rate 0 Narrative Exam Narrative: Heart is regular rate and rhythm without murmur. Lungs are clear to auscultation bilaterally. Abdomen is soft, bowel sounds positive, nontender, no organomegaly. There is no ankle edema. He is alert and oriented x3. He is in no apparent distress, sitting in his chair, fully clothed and waiting to go home. Objective Labs Result Diagrams: 04/12/20 05:15 04/12/20 05:15 [facility] Medical History (Updated 04/10/20 @ 10:54 by Padma Saleh DO) Normal colonoscopy Social History household members: none Smoking Status: Former smoker Discharge Plan Discharge Plan Patient Disposition: Home Provider Discharge Comment: Follow up with your new primary care doctor in 2 weeks Discharge orders & Medications Prescriptions: No Action No Known Home Medications RF: 0 Visit Report/Discharge Packet Instructions: Acute Pancreatitis, Fat-Restricted Diet, DI for Pancreatitis Quality VTE Deep Vein Thrombosis/Pulmonary Embolism Present on Admission: No
--- NOTE | 2020-04-14 10:10 | PC.NURSE ---
Day shift note: Patient discharged home per MD order, awake, alert, and pleasantly cooperative. NO C/O pain or nausea. Tolerating regular diet. Discussed importance of F/U with PMD in 2 weeks, dietary changes, and s/sx of stroke. Patient independently ambulatory in room, dressed self. Home via private vehicle.
--- NOTE | 2020-04-14 12:22 | CM.DPC ---
DCP: continued: Pt today is deemed stable for d/c to home. He is up and about independently in room. He left for home this morning via pvt vehicle. He plans to establish care at [facility], an [facility].
== END 2020-04-14 10:14 | disposition home or self-care (01) | DRG 439 ==
LOC: ED 10:57 → AC 11:31
PROVIDERS: Admitting Provider Internal Medicine; Emergency Provider Emergency Medicine; Referring Provider Emergency Medicine; Visit Provider Internal Medicine
DX: K85.90 Acute pancreatitis without necrosis or infection, unspecified (principal); K86.2 Cyst of pancreas; Z87.891 Personal history of nicotine dependence; Z20.822 Contact with and (suspected) exposure to COVID-19; R07.89 Other chest pain
CPT/HCPCS: 36415; 74019; 74177; 76700; 80048; 80053; 82550; 83036; 83690; 84145; 84478; 84484; 85025; 85610; 85730; 87635; 90471; 90662; 93005; 93010; 96361; 96374; 96375; 99282; C9803; J1650; J1885; J2405; J2765; Q9967

== ENCOUNTER → 2020-05-31 10:25 | Outpatient (CLI) | payer MEDICARE, BC, SELFPAY ==
[2020-04-10 11:42] VITALS: BMI 25.5
[2020-05-31] MEDS: COVID-19 VACC, Ad26(JANSSEN)/PF 0.5 ML IM (10:33)
== END ==
PROVIDERS: Visit Provider Internal Medicine
DX: Z23 Encounter for immunization (principal)
CPT/HCPCS: 0031A; 91303